=== PATIENT | female | born 1995 | race Caucasian/White ===

== ENCOUNTER 2021-03-31 08:52 | Day surgery (SDC) | payer MEDICAID ==
[2021-03-25 10:59] LABS: BASOPHILS % (AUTO) 0.7 % (0-1); EOSINOPHILS # (AUTO) 0.1 X10'3 (0-0.9); EOSINOPHILS % (AUTO) 0.9 % (0-6); LYMPHOCYTES # (AUTO) 2.6 X10'3 (1.1-4.8); LYMPHOCYTES % (AUTO) 38.5 % (21-51); MEAN CORPUSCULAR HEMOGLOBIN 30.4 PG (27.0-31.0); MEAN CORPUSCULAR HGB CONC 33.3 g/dL (33.0-36.5); MEAN CORPUSCULAR VOLUME 91.5 FL (78-98); MEAN PLATELET VOLUME 8.2 FL (7.4-10.4); MONOCYTES # (AUTO) 0.7 X10'3 (0-0.9); MONOCYTES % (AUTO) 10.5 % (2-12); NEUTROPHILS # (AUTO) 3.3 X10'3 (1.8-7.7); NEUTROPHILS % (AUTO) 49.4 % (42-75); PRE OP HEMATOCRIT 43.2 % (35.0-45.0); PRE OP HEMOGLOBIN 14.4 g/dL (12.0-16.0); PRE OP PLATELET COUNT 293 X10'3 (140-440); RED BLOOD COUNT 4.72 X10'6 (4.20-5.60)
[2021-03-25 11:01] LABS: CLARITY,URINE CLEAR (Clear); COLOR,URINE STRAW (Yellow); GLUCOSE, URINE NEGATIVE (Neg); KETONES,URINE NEGATIVE (Neg); LEUKOCYTE ESTERASE ,URINE NEGATIVE (Neg); NITRITES, URINE NEGATIVE (Neg); OCCULT BLOOD,URINE NEGATIVE (Neg); PH,URINE 6.5 (4.8-8.0); PROTEIN,URINE NEGATIVE (Neg); UROBILINOGEN,URINE 0.2 E.U/dL (0.2-1.0)
[2021-03-25 11:04] LABS: UA COLLECTION TYPE CLN CATCH MIDSTREAM
[2021-03-25 11:13] LABS: PRE OP PROTIME 10.3 SECONDS (9.0-12.0)
[2021-03-25 11:14] LABS: ALBUMIN 4.2 G/DL (3.4-5.0); ALBUMIN/GLOBULIN RATIO 1.1 (1.1-1.5); ALKALINE PHOSPHATASE 87 IU/L (46-116); BLOOD UREA NITROGEN 13 MG/DL (7-18); BUN/CREATININE RATIO 17.3 (6.6-38.0); CALCIUM 9.2 MG/DL (8.5-10.1); CHLORIDE 104 MMOL/L (99-107); CREATININE 0.75 MG/DL (0.40-0.90); PRE OP ALT 27 U/L (30-65); PRE OP ANION GAP 9 (8-16); PRE OP AST 17 U/L (10-37); PRE OP BILIRUB, TOTAL 0.6 MG/DL (0.0-1.0); PRE OP GLUCOSE 64 MG/DL (70-104); PRE OP POTASSIUM 3.5 MMOL/L (3.4-5.1); PRE OP SODIUM 139 MMOL/L (135-145); TOTAL PROTEIN 8.2 G/DL (6.4-8.2); eGFR > 90 ML/MIN
[2021-03-25 11:20] LABS: HCG SERUM QL NEGATIVE
[~2021-03-31] VITALS: Ht 157.5 cm; Wt 73.8 kg
[~2021-03-31 08:52] MED LIST: NO HOME MEDS; ceFOXitin 2GM-NS 100mL ADDvant 100 ML IV ONE; famotidine 20mg tablet PO ONE; ringers solution, lacted 1,000 ML IV SCH
[2021-03-31 09:15] VITALS: BP 99/56
--- NOTE | 2021-03-31 09:30 | NUR ---
PTS BELONGINGS, CLOTHING ONLY SENT TO PACU, PTS MOM HAS CELL PHONE AND PURSE. Addendum: 03/31/21 at 0956 by Mirian Garza RN Amended: Links added.
[2021-03-31] MEDS ORDERED: BUPIVAcaine/PF 2.5 mg/ml (0.25%) 30ml vial ONE (09:42)
[2021-03-31] MEDS ORDERED: sevoflurane 250ml liquid IH ONE (09:51)
[2021-03-31] MEDS ORDERED: fentaNYL/PF 50MCG/1 ML 2ML syringe ONE (09:56)
[2021-03-31] MEDS ORDERED: midazolam 1 mg/ML 2ml injection ONE (09:56)
[2021-03-31] MEDS ORDERED: rocuronium 10mg/ml inj IV ONE (10:25)
[2021-03-31] MEDS ORDERED: propofol inj 20 ML IV ONE (10:25)
[2021-03-31] MEDS ORDERED: glycopyrrolate 0.2mg/ml inj ONE (10:25)
[2021-03-31] MEDS ORDERED: dexamethasone sod phosphate 4mg/ml inj. ONE (10:25)
[2021-03-31] MEDS ORDERED: ePHEDrine 50MG/ML INJ. ONE (10:25)
[2021-03-31] MEDS ORDERED: LIDOcaine 2% (20mg/ml) 5ml vial ONE (10:25)
[2021-03-31] MEDS ORDERED: ondansetron/PF 4mg/2ml inj ONE (10:25)
[2021-03-31] MEDS ORDERED: neostigmine methylsulfate 1 MG/ML 10ml vial ONE (10:25)
[2021-03-31] MEDS ORDERED: acetaminophen 1,000mg/100ml IV 100 ML IV ONE (10:38)
[2021-03-31 10:47] VITALS: BP 105/64
--- NOTE | 2021-03-31 10:47 | NUR ---
Received from OR via [facility] IN STABLE CONDITION , accompanied by Anesthesiologist and MIXED ANIMAL VETERINARIAN report given by Gopal. Addendum: 03/31/21 at 1202 by Brenda Dsouza RN Amended: Links added.
[2021-03-31] MEDS ORDERED: proCHLORperazine 10 MG/2 ml inj ONE (10:51)
[2021-03-31 11:00] VITALS: BP 101/61
[2021-03-31 11:10] VITALS: BP 102/60
[2021-03-31 11:20] VITALS: BP 105/64
[2021-03-31 11:30] VITALS: BP 100/62
--- NOTE | 2021-03-31 11:47 | NUR ---
PATIENT DISCHARGED FROM PACU IN STABLE CONDITION AFTER WRITTEN AND VERBAL DISCHARGE INSTRUCTIONS GIVEN. PATIENT GAVE VERBAL UNDERSTANDING OF INSTRUCTIONS GIVEN. PATIENT LEFT FACILITY VIA WHEELCHAIR WITH RN. Addendum: 03/31/21 at 1208 by Brenda Dsouza RN Amended: Links added.
== END 2021-03-31 11:47 | disposition home or self-care (01) ==
LOC: PAS 08:52
PROVIDERS: ATTEND Obstetrics & Gynecology
DX: Z30.2 Encounter for sterilization (principal); G43.909 Migraine, unspecified, not intractable, without status migrainosus; J45.909 Unspecified asthma, uncomplicated; Z20.822 Contact with and (suspected) exposure to COVID-19; Z79.899 Other long term (current) drug therapy; Z79.01 Long term (current) use of anticoagulants; Z98.890 Other specified postprocedural states
CPT/HCPCS: 36415; 58670; 80053; 81003; 82948; 84703; 85025; 85610; 85730; 86885; 86900; 86901; C1758; J0131; J0694; J0780; J1100; J2001; J2250; J2405; J2704; J2710; J3010; J3490; J7120; U0003; U0005; A4618; A7000